=== PATIENT | female | born 1990 | race Caucasian/White ===

== ENCOUNTER 2023-04-26 08:04 | Outpatient (REF) | payer OTHER, SELFPAY ==
--- NOTE | ~2023-04-26 | XR_ITS ---
EXAMINATION: XR KNEE, LEFT CLINICAL INFORMATION: Pain in left knee COMPARISON: 06/30/2011 TECHNIQUE: Three views of the left knee. FINDINGS: There is new since previous examination mild narrowing of medial compartment of left knee joint and marginal spurring causing medial femoral condyle and less prominent medial tibial plateau and lateral tibial plateau. There is patellar spurring but no evidence of joint effusion. There is mild narrowing of lateral compartment of patellofemoral joint. XR/XR knee LT 3V IMPRESSION: 3 compartmental changes of osteoarthritis of left knee joint.
== END 2023-04-26 08:05 | disposition home or self-care (01) ==
LOC: HO.HOSX 08:04
PROVIDERS: Visit Provider Orthopaedic Surgery
DX: M25.562 Pain in left knee (principal)
CPT/HCPCS: 20610; 73562; J3301

== ENCOUNTER 2023-04-26 13:25 | Outpatient (AMB) | payer OTHER, SELFPAY ==
--- NOTE | 2023-04-26 13:39 | MHC.OFFVIS ---
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 Patient reports while it was her turn to bowl she heard a crack and pop in her left knee. She presented to [facility] ED that same day where xrays were taken. She was also seen the following day due to coldness in foot and searing pain up and down her leg. Currently unable to bear weight without pain. Finds no relief with ibuprofen. Hx of left knee meniscus repair [place] [facility] [place] denies any fevers or chills. She has taken Tylenol and anti-inflammatory medicines which gave her minimal relief. 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 Physical Exam Vital Signs: BMI result Body Mass Index 45.2 Const Other: Well-nourished well-developed very friendly female awake alert and oriented x3 in no acute distress Extrem Other: Bilateral lower extremity examination shows good capillary refill, no skin lesions noted, normal sensation light touch Left knee examination shows a mild effusion, mild crepitus with range of motion, tenderness along her medial joint line, tenderness diffusely along her extensor mechanism, no palpable defect, positive Kwesi's test, weakness when attempting active extension which might be limited due to pain Office Procedures Joint Injection/Drain Joint Injection/Drain Primary Site: left knee Prep: site was prepped using aseptic technique Injected: 40 mg of, Kenalog and 1% plain lidocaine Procedure: The patient tolerated the procedure well Coding 38240 - Large joint Procedure code (CPT) selection complete Results Reviewed Results Reviewed: X-rays of the patient's left knee show mild joint space narrowing, no acute bony abnormalities, no high riding patella Assessment & Plan Assessment & Plan (1) Left knee pain: Code(s): M25.562 - Pain in left knee Plan: Ms. Shrestha presents with left knee pain and weakness possibly due to a recurrence medial meniscus tear verses extensor mechanism injury. The risks and benefits of a cortisone injection were discussed at length with the patient. The patient wished to proceed. She tolerated the injection well. Because of her instability I will also have her fitted with a knee brace. I do find that the brace is a medical necessity to help prevent falls. I will also send the patient for an MRI of her left knee to further evaluate her for a meniscus or extensor mechanism injury. I will contact the patient by phone once the MRI results are available. I did give her a prescription for Dilaudid to help with her pain in the meantime. Feel free to call me at any time should questions regarding her orthopedic management arise. I spent 22 minutes in reviewing the patient's records and imaging studies, seeing the patient and documenting in the medical record. Orders: Orders MR knee LT wo con Today M25.562 - Pain in left knee XR knee LT 3V Today M25.562 - Pain in left knee AMB Joint Injection/Aspiration Today M25.562 - Pain in left knee Medications: New hydromorphone (Dilaudid) Partial Fill upon patient request. 2 mg PO Q8H 20 tabs 0RF Coding Level of Care Code New Pt Level 2 (22953) Diagnoses Left knee pain M25.562 CPT Codes Coding - 98571 Large joint: 54037 - Large joint ([id number])
[2023-04-26 13:43] VITALS: BMI 45.2
== END 2023-04-26 14:23 | disposition home or self-care (01) ==
PROVIDERS: PCP Internal Medicine; Visit Provider Orthopaedic Surgery
DX: M25.562 Pain in left knee (principal)
CPT/HCPCS: 20610; 99202

== ENCOUNTER 2023-05-04 09:47 | Outpatient (AMB) | payer OTHER, SELFPAY ==
[2023-05-04 09:50] VITALS: BMI 45.2
--- NOTE | 2023-05-04 09:50 | MHC.OFFVIS ---
Intake Vital Signs 05/04/23 09:50 Height 5 ft 6 in Weight 280 lb BMI 45.2 Intake Visit Reasons: ov-Left Knee MRI review Intake Note: Cadence is a 32 year old female who presents for follow-up of her left knee pain and giving way. The patient states that she got minimal relief from the cortisone injection that she was given recently. She continues to walk with crutches. She has tried Dilaudid which gives her no relief but did make her dizzy. The patient states that her ultrasounds of her left lower extremity did show a blood clot. She is now on Eliquis. 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 Shrestha presents with left knee pain and mechanical symptoms due to early degenerative joint disease as well as tearing of her lateral meniscus and possible medial meniscus tearing. I had a lengthy discussion with the patient regarding the treatment options. At this point she appears to be failing continued non operative treatments. I discussed with the patient the fact that I do not feel comfortable performing arthroscopic surgery on her because of her recent blood clot. From my standpoint she should wait several months. We did discuss the patient is getting a 2nd opinion from my partner, Dr. Pravin Jarrell. Dr. Jarrell did recently perform shoulder surgery on the patient's . I have no problem with this. I will arrange for the patient to have a follow-up appointment with Dr. Jarrell. She will follow-up as instructed. Feel free to call me at any time should questions regarding her orthopedic management arise. I spent 20 minutes in reviewing the patient's records and imaging studies, seeing the patient and documenting in the medical record. Coding Level of Care Code Est Pt Level 2 (50270) Diagnoses Left knee pain M25.562
== END 2023-05-04 10:49 | disposition home or self-care (01) ==
PROVIDERS: PCP Internal Medicine; Visit Provider Orthopaedic Surgery
DX: M25.562 Pain in left knee (principal)
CPT/HCPCS: 99212

== ENCOUNTER → 2023-05-04 09:47 | Outpatient (BNVA) | payer OTHER, SELFPAY | PROVIDERS: PCP Internal Medicine; Visit Provider Orthopaedic Surgery ==

== ENCOUNTER 2023-05-09 13:24 | Outpatient (AMB) | payer OTHER, SELFPAY ==
--- NOTE | 2023-05-09 13:34 | A.OFFVIS_ITS ---
Intake Intake Visit Reasons: OV- Left knee pain Intake Note: Cadence is a 32 year old female who presents for follow-up of her left knee pain. She injured it on April 24 while bowling. She is here to see Dr. Jarrell as she was referred by Dr. Loera. Allergies Penicillins [PENICILLINS] Allergy (Severe, Verified 05/09/23 13:37) SHORTNESS OF BREATH amoxicillin [AMOXICILLIN] Allergy (Unknown, Verified 05/09/23 13:37) DIFFICULTY BREATHING, shortness of breath Medication List - Last Reconciled 05/09/23 by Anjelica Mcdonald RN hydromorphone (Dilaudid) 2 mg PO Q8H HPI OV- Left knee pain HPI Details Cadence is a 32 year old woman who presents to discuss treatment for her left knee meniscus tear & OA. She complains of pain with daily activity, worse with twisting activities or using stairs. She reports injuring her knee on 04/24/23 while bowling. She says she cannot play games and other activities with her children, and she is worried about how much worse her knee may get if she does not have surgery. She says the brace she was given does not fit properly and she cannot wear it. She finds some relief from taking her Dilauded. She was referred her by Dr. Loera, as he did not recommend surgery given her recent hx of DVT in her left leg, which she is managing with [facility]. 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 Review of Systems Const All systems reviewed & are unremarkable except as noted in HPI and below Physical Exam Const General: no acute distress, alert and awake Orientation/consciousness: patient oriented x3 HEENT Head: Yes normocephalic and Yes atraumatic Eyes EOM: EOMs intact bilaterally Resp Effort & Inspection: normal respiratory effort and able to speak in complete sentences Cardio Jugular venous distension: no JVD Skin General skin exam: turgor normal Rashes: no rashes Neuro General: patient oriented x3 Extrem Other: medial joint line pain moderate effusion 5-125 deg motion stable ligamentous exam Psych Appearance: grossly normal Affect: normal affect Attitude: cooperative Results Reviewed Results Reviewed: I personally reviewed relevant MR images Tricompartmental OA most pronounced in anterior compartment with degenerative tearing of medial meniscus. Assessment & Plan Assessment & Plan (1) Osteoarthritis of left knee: Code(s): M17.12 - Unilateral primary osteoarthritis, left knee Plan: This is a 32 year old woman with a left knee tricompartmental OA, with meniscus tear after an injury while bowling, DOI: 04/24/23. She complains of pain with daily activity, worse with twisting activities or using stairs. She has a recent hx of a DVT in her left leg, and she is taking Eliquis for a ED diagnosed clot isolated to gastrocnemius vein. I am not certain this requires full anticoagulation and should be further evaluated by PCP/Vascular. WIth respect to her knee she feels limited in her ability to engage in activities with her children, and she finds this frustrating. I discussed her diagnosis and treatment options. I recommend NSAIDs, RICE, and activity modification. I ordered PT and prescribed a Cryo-cuff for her to use. She will follow up in 4-6 weeks. (2) Effusion, left knee: Code(s): M25.462 - Effusion, left knee Plan Scribed for Pravin Jarrell MD by Mihir Gerber, veterinary medical officer, on 05/09/23 at 2:00 PM, EST. Orders: Orders PT Evaluation and Treatment Today M17.12 - Unilateral primary osteoarthritis, left knee, M25.462 - Effusion, left knee Coding Level of Care Code Est Pt Level 4 (68681) Diagnoses Osteoarthritis of left knee M17.12 Effusion, left knee M25.462
== END 2023-05-09 14:22 | disposition home or self-care (01) ==
PROVIDERS: PCP Internal Medicine; Visit Provider Orthopaedic Surgery
DX: M17.12 Unilateral primary osteoarthritis, left knee (principal); M25.462 Effusion, left knee
CPT/HCPCS: 99214

== ENCOUNTER → 2023-05-09 13:24 | Outpatient (BNVA) | payer OTHER, SELFPAY | PROVIDERS: PCP Internal Medicine; Visit Provider Orthopaedic Surgery ==

== ENCOUNTER 2023-05-13 14:44 | Outpatient (AMB) | payer OTHER, SELFPAY ==
[2023-05-13 14:56] VITALS: BP 130/82; PULSE 105; TEMP 36.4; O2SAT 98; BMI 45.2
--- NOTE | 2023-05-13 14:56 | MHC.OFFWIV ---
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/[phone] Intake Note: pt is here for medication refill Patient Tobacco Use Status: Never used Tobacco Allergies Penicillins [PENICILLINS] Allergy (Severe, Verified 05/13/23 14:56) SHORTNESS OF BREATH amoxicillin [AMOXICILLIN] Allergy (Unknown, Verified 05/13/23 14:56) DIFFICULTY BREATHING, shortness of breath Medication List - Last Reconciled 05/13/23 by Simba Padron MD apixaban (Eliquis DVT-PE Treat 30D Start) mg PO metformin 1,000 mg PO DAILY Do you need a note to return to daycare/school/sports/work: Yes HPI 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 She was also found to be diabetic with hemoglobin A1c of 8.9 Currently she is taking metformin 1 g, patient request to go up to b.i.d. does which is fine with me. We will get note from emergency room to review her other labs She said that her kidney functions were intact She need a referral to Hematology because of DVT Patient is morbidly obese with BMI of 45.2 She had appointment with new PCP but it is not till December of next year I am changing that appointment to end of May patient will return and see me. Also complaining of discomfort left ear on examination there is no infection. 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 Review of Systems Const Denies chills and Denies fever(s) ENT Denies epistaxis and Denies nasal discharge Card Denies chest pain Resp Denies chest congestion, Denies cough and Denies hemoptysis GI Denies diarrhea and Denies nausea Skin/Breast Denies rash Neuro Reports no additional complaints Psych Reports no additional complaints Endo Reports no additional complaints Physical Exam Vital Signs: Last Vital Signs Temp 97.6 F 05/13/23 14:56 Pulse 105 H 05/13/23 14:56 BP 130/82 05/13/23 14:56 Pulse Ox 98 05/13/23 14:56 Oxygen Delivery Method Room Air 05/13/23 14:56 BMI result Body Mass Index 45.2 Const General: cooperative, comfortable and no acute distress Orientation/consciousness: patient oriented x3 HEENT Head: Yes normocephalic Eyes General: appearance normal, both eyes and all related structures Neck Other: Supple Neck: Yes supple Resp Effort & Inspection: normal respiratory effort, no cough and no stridor Cardio Rhythm: regular rhythm Heart sounds: S1 normal heart sound present and S2 normal heart sound present Skin General skin exam: turgor normal Neuro Other: Motor sensory intact General: patient oriented x3, tone normal and moves all extremities Extrem Other: No lower extremity swelling. Right lower extremity: no edema Left lower extremity: no edema Psych Other: Normal effect, speech clear Assessment & Plan Assessment & Plan (1) Diabetes mellitus type 2 in obese: Code(s): E11.69 - Type 2 diabetes mellitus with other specified complication; E66.9 - Obesity, unspecified (2) Hx of usp use of blood thinners: Code(s): Z92.29 - Personal history of other drug therapy (3) Morbid obesity due to excess calories: Code(s): E66.01 - Morbid (severe) obesity due to excess calories (4) Ear pain, left: Code(s): H92.02 - Otalgia, left ear (5) Deep venous thrombosis of distal end of left lower extremity: Code(s): I82.4Z2 - Acute embolism and thrombosis of unspecified deep veins of left distal lower extremity Qualifiers: Chronicity: acute Qualified Code(s): I82.4Z2 - Acute embolism and thrombosis of unspecified deep veins of left distal lower extremity Plan Patient is 32-year-old female came in today for medication refill Patient says that April 24 she fell and injured her left knee After that patient developed DVT left lower extremity she was evaluated at [facility] Patient was started on Eliquis currently she is taking 5 mg b.i.d. She was also found to be diabetic with hemoglobin A1c of 8.9 Currently she is taking metformin 1 g, patient request to go up to b.i.d. does which is fine with me. We will get note from emergency room to review her other labs She said that her kidney functions were intact She need a referral to Hematology because of DVT Patient is morbidly obese with BMI of 45.2 She had appointment with new PCP but it is not till December of next year I am changing that appointment to end of May patient will return and see me. Also complaining of discomfort left ear on examination there is no infection. Medications sent Orders: Orders Comprehensive Met. Panel Today E11.9 - Type 2 diabetes mellitus without complications, Z92.29 - Personal history of other drug therapy Complete Blood Count Auto Diff Today E11.9 - Type 2 diabetes mellitus without complications, Z92.29 - Personal history of other drug therapy Hemoglobin A1c Today E11.9 - Type 2 diabetes mellitus without complications, Z92.29 - Personal history of other drug therapy Referrals Hematology & Oncology Referral I82.4Z2 - Acute embolism and thrombosis of unspecified deep veins of left distal lower extremity Medications: New metformin 1,000 mg PO BID 180 tabs 0RF 90 days apixaban (Eliquis DVT-PE Treat 30D Start) 5 mg PO BID 180 ea 0RF 90 days Coding Level of Care Code New Pt Level 5 (54693) Diagnoses Diabetes mellitus type 2 in obese E11.69; E66.9 Hx of usp use of blood thinners Z92.29 Morbid obesity due to excess calories E66.01 Ear pain, left H92.02 Acute deep vein thrombosis (DVT) of distal vein of left lower extremity I82.4Z2 Chronicity: acute
== END 2023-05-13 15:28 | disposition home or self-care (01) ==
PROVIDERS: PCP Internal Medicine; Visit Provider Internal Medicine
DX: E11.69 Type 2 diabetes mellitus with other specified complication (principal); E66.01 Morbid (severe) obesity due to excess calories; I82.4Z2 Acute embolism and thrombosis of unspecified deep veins of left distal lower extremity; Z68.42 Body mass index [BMI] 45.0-49.9, adult; E66.9 Obesity, unspecified; Z92.29 Personal history of other drug therapy; H92.02 Otalgia, left ear
CPT/HCPCS: 99204

== ENCOUNTER → 2023-06-07 13:48 | Outpatient (BNV) | payer OTHER, SELFPAY | PROVIDERS: PCP Internal Medicine; Visit Provider Internal Medicine | DX: I82.4Z2 Acute embolism and thrombosis of unspecified deep veins of left distal lower extremity (principal) | CPT/HCPCS: 99204 ==

== ENCOUNTER 2023-06-07 14:29 | Outpatient (REF) | payer OTHER, SELFPAY ==
--- NOTE | ~2023-06-07 | US_ITS ---
EXAMINATION: US VENOUS ULTRASOUND WITH DOPPLER LOWER EXTREMITY, LEFT CLINICAL INFORMATION: History of superficial calf thrombosis. COMPARISON: None available. TECHNIQUE: Ultrasound of the deep veins is performed from the hip to the calf with compression sonography and color and pulse Doppler assessment. Spectral analysis with color-flow imaging is performed. FINDINGS: There is normal venous compression and respiratory variation and augmented flow. The visualized common femoral vein, superficial femoral vein, profunda femoral vein, popliteal vein, and the trifurcation region shows no evidence of deep venous thrombosis. There is no significant popliteal fossa cyst. No thrombosed superficial veins identified. If the patient's symptoms persist, followup ultrasound in 5 days 7 days might be of value to exclude proximal propagation from a non-visualized calf vein. US/US venous duplex LE IMPRESSION: No DVT demonstrated in the left lower extremity.
== END 2023-06-07 14:30 | disposition home or self-care (01) ==
LOC: HO.US 14:29
PROVIDERS: Visit Provider Internal Medicine
DX: I82.4Z2 Acute embolism and thrombosis of unspecified deep veins of left distal lower extremity (principal)
CPT/HCPCS: 93971

== ENCOUNTER 2023-06-08 15:06 | Outpatient (AMB) | payer OTHER, SELFPAY ==
[2023-06-08 15:07] VITALS: BP 132/78; PULSE 93; O2SAT 98; BMI 45.4
--- NOTE | 2023-06-08 15:07 | MHC.PC.OV ---
Vital Signs 06/08/23 15:07 Height 5 ft 6 in Weight 281 lb 6 oz BMI 45.4 BP 132/78 Blood Pressure Location Rt brachial Position Sitting Pulse 93 Pulse Source Pulse Oximeter Pulse Oximetry (%) 98 Oxygen Delivery Method Room Air Intake Visit Reasons: Follow up from the walk in Allergies Penicillins [PENICILLINS] Allergy (Severe, Verified 06/08/23 15:08) SHORTNESS OF BREATH amoxicillin [AMOXICILLIN] Allergy (Unknown, Verified 06/08/23 15:08) DIFFICULTY BREATHING, shortness of breath Medication List - Last Reconciled 06/08/23 by Simba Padron MD blood sugar diagnostic (FreeStyle Lite Strips) test blood sugar once a day blood-glucose meter (FreeStyle Lite Meter kit) As directed lancets (FreeStyle Lancets) test blood sugar once a day metformin 1,000 mg PO BID 90 days Tobacco use date assessed: 06/08/23 Dental Screening Dental Screen Date: 06/08/23 Did you have a dental visit in the last 12 months?: Yes Did you have a dental problem in the last 6 months where you did not have access to dental care?: No Was dental information given to patient?: Patient has dentist HPI Follow up from the walk in HPI Details Patient is a 32-year-old female with a history of DVT left leg after injury She has been on Plavix for the past 2 months, patient had consultation by Hematology. Note reviewed, they recommended that patient stop Plavix after finishing this month. She had ultrasound of leg done which showed no DVT. Diabetes mellitus: Patient is currently taking metformin 1 g b.i.d., her fasting sugar is running around 120 and after eating around 140 Patient is tolerating medication with a slight discomfort in her abdomen. BMI is elevated at 45.4 patient is trying to lose weight. She will have labs done in July and will return in August for physical examination. 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 How often do you have a drink containing alcohol?: Never 3. How often do you have six or more drinks on one occasion?: Never Total Score: 0 Score Reviewed/Action Taken: Yes Review of Systems Const Denies chills and Denies fever(s) ENT Denies epistaxis and Denies nasal discharge Card Denies chest pain Resp Denies chest congestion, Denies cough and Denies hemoptysis GI Denies diarrhea and Denies nausea Skin/Breast Denies rash Neuro Reports no additional complaints Psych Reports no additional complaints Endo Reports no additional complaints Physical exam (Primary Care) Vital Signs: Last Vital Signs Pulse 93 06/08/23 15:07 BP 132/78 06/08/23 15:07 Pulse Ox 98 06/08/23 15:07 Oxygen Delivery Method Room Air 06/08/23 15:07 BMI result Body Mass Index 45.4 Tobacco/Smoking Status: Tobacco use Status Tobacco use date assessed 06/08/23 06/08/23 15:08 Patient Tobacco Use Status Never used Tobacco 06/08/23 15:08 e-Cigarette/Vaping Use Never Used 06/08/23 15:08 Const General: cooperative, comfortable and no acute distress Orientation/consciousness: patient oriented x3 HENMT Head: Yes normocephalic Eyes General: appearance normal, both eyes and all related structures Neck Neck: Yes supple Resp Effort & Inspection: normal respiratory effort, no cough and no stridor Cardio Rhythm: regular rhythm Heart sounds: S1 normal heart sound present and S2 normal heart sound present Skin General skin exam: turgor normal Neuro General: patient oriented x3, tone normal and moves all extremities Extrem Right lower extremity: no edema Left lower extremity: no edema Assessment and Plan Assessment & Plan (1) Establishing care with new doctor, encounter for: Code(s): Z76.89 - Persons encountering health services in other specified circumstances (2) Diabetes mellitus type 2 in obese: Code(s): E11.69 - Type 2 diabetes mellitus with other specified complication; E66.9 - Obesity, unspecified (3) Morbid obesity due to excess calories: Code(s): E66.01 - Morbid (severe) obesity due to excess calories (4) Osteoarthritis of left knee: Code(s): M17.12 - Unilateral primary osteoarthritis, left knee Qualifiers: Osteoarthritis type: primary Qualified Code(s): M17.12 - Unilateral primary osteoarthritis, left knee Plan Patient is a 32-year-old female with a history of DVT left leg after injury She has been on Plavix for the past 2 months, patient had consultation by Hematology. Note reviewed, they recommended that patient stop Plavix after finishing this month. She had ultrasound of leg done which showed no DVT. Diabetes mellitus: Patient is currently taking metformin 1 g b.i.d., her fasting sugar is running around 120 and after eating around 140 Patient is tolerating medication with a slight discomfort in her abdomen. BMI is elevated at 45.4 patient is trying to lose weight. She will have labs done in July and will return in August for physical examination. Orders: Orders Complete Blood Count Auto Diff Today . - Type 2 diabetes mellitus with other specified complication, E66.01 - Morbid (severe) obesity due to excess calories, E66.9 - Obesity, unspecified, M17.12 - Unilateral primary osteoarthritis, left knee Microalbumin, Random (w Creat) Today . - Type 2 diabetes mellitus with other specified complication, E66.01 - Morbid (severe) obesity due to excess calories, E66.9 - Obesity, unspecified, M17.12 - Unilateral primary osteoarthritis, left knee Lipid Panel Today . - Type 2 diabetes mellitus with other specified complication, E66.01 - Morbid (severe) obesity due to excess calories, E66.9 - Obesity, unspecified, M17.12 - Unilateral primary osteoarthritis, left knee Hemoglobin A1c Today E11. - Type 2 diabetes mellitus with other specified complication, E66.01 - Morbid (severe) obesity due to excess calories, E66.9 - Obesity, unspecified, M17.12 - Unilateral primary osteoarthritis, left knee Comprehensive Mcgrath. Panel Fast Today E11. - Type 2 diabetes mellitus with other specified complication, E66.01 - Morbid (severe) obesity due to excess calories, E66.9 - Obesity, unspecified, M17.12 - Unilateral primary osteoarthritis, left knee TSH reflex Free T4 Today E11.69 - Type 2 diabetes mellitus with other specified complication, E66.01 - Morbid (severe) obesity due to excess calories, E66.9 - Obesity, unspecified, M17.12 - Unilateral primary osteoarthritis, left knee Medications: Discontinued apixaban (Eliquis) Discontinued Reason: Patient Completed Course 5 mg PO BID 90 days 180 tabs 0RF Coding Level of Care Code New Pt Level 4 (99388) Diagnoses Establishing care with new doctor, encounter for Z76.89 Diabetes mellitus type 2 in obese E11.69; E66.9 Morbid obesity due to excess calories E66.01 Primary osteoarthritis of left knee M17.12 Osteoarthritis type: primary
== END 2023-06-08 17:48 | disposition home or self-care (01) ==
PROVIDERS: PCP Internal Medicine; Visit Provider Internal Medicine
DX: E11.69 Type 2 diabetes mellitus with other specified complication (principal); E66.01 Morbid (severe) obesity due to excess calories; Z68.42 Body mass index [BMI] 45.0-49.9, adult; Z76.89 Persons encountering health services in other specified circumstances; M17.12 Unilateral primary osteoarthritis, left knee
CPT/HCPCS: 99214

== ENCOUNTER 2023-06-13 14:28 | Outpatient (AMB) | payer OTHER, SELFPAY ==
[2023-06-13 14:32] VITALS: BMI 45.3
--- NOTE | 2023-06-13 14:32 | A.OFFVIS_ITS ---
Intake Vital Signs 06/13/23 14:32 Height 5 ft 6 in Weight 281 lb BMI 45.3 Intake Visit Reasons: ov- Left knee pain Intake Note: Cadence is a 32 year old female who presents today for a follow up of her left knee pain. Cryocuff was ordered. Patient report that she is still having continued pain/swelling. She no longer has a blood clot so she is no longer taking blood thinners. She has pain with prolonged standing and walking. She is using the Cryotherapy device whic she feels is helping her significantly. She would like a letter of medical necessity. Allergies Penicillins [PENICILLINS] Allergy (Severe, Verified 06/08/23 15:08) SHORTNESS OF BREATH amoxicillin [AMOXICILLIN] Allergy (Unknown, Verified 06/08/23 15:08) DIFFICULTY BREATHING, shortness of breath HPI ov- Left knee pain HPI Details Cadence is a 32 year old woman who returns to discuss her left knee meniscus tear & OA. She continues to have some pain & swelling with daily activities, worse with twisting activities or using stairs. She says this has improved since her last appointment, but she has good & bad days She has been using a cryo-cuff since her last appointment, which she has found to be very helpful for her. She is supposed to finally start PT this week. She is eager to return to bowling soon, as well as going to the gym and riding a stationary bicycle. She would like a letter of medical necessity for her insurance provider to continue using the cryo-cuff device. She says her recent ultrasound showed no evidence of DVT and she has discontinued her Eliquis. She would like to start taking NSAIDs for relief now. 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 Sexual orientation: Straight/Heterosexual Gender identity: Female Cognitive needs: No Hearing needs: No Vision needs: No Review of Systems Const All systems reviewed & are unremarkable except as noted in HPI and below Physical Exam Vital Signs: BMI result Body Mass Index 45.3 Const General: no acute distress, alert and awake Orientation/consciousness: patient oriented x3 HEENT Head: Yes normocephalic and Yes atraumatic Eyes EOM: EOMs intact bilaterally Resp Effort & Inspection: normal respiratory effort and able to speak in complete sentences Cardio Jugular venous distension: no JVD Skin General skin exam: turgor normal Rashes: no rashes Neuro General: patient oriented x3 Extrem Other: Left knee with full ROM and mild effusion Mild pain with medial compartment palpation Psych Appearance: grossly normal Affect: normal affect Attitude: cooperative Results Reviewed Results Reviewed: I personally reviewed relevant MR images Tricompartmental OA most pronounced in anterior compartment with degenerative tearing of medial meniscus. Assessment & Plan Assessment & Plan (1) Osteoarthritis of left knee: Code(s): M17.12 - Unilateral primary osteoarthritis, left knee Qualifiers: Osteoarthritis type: primary Qualified Code(s): M17.12 - Unilateral primary osteoarthritis, left knee Plan: Left knee OA with degenerative meniscal tearing. No intervantion warranted. She feels better than prior and we discussed ways to manage her arthritis through activity modification adn non suregical interventions such as injections, strtengthening. She expressed understanding and will see me as needed. Plan Scribed for Pravin Jarrell MD by Mihir Gerber, medical research associate, on 06/13/23 at 2:50 PM, EST. Coding Level of Care Code Est Pt Level 4 (56544) Diagnoses Primary osteoarthritis of left knee M17.12 Osteoarthritis type: primary
== END 2023-06-13 15:31 | disposition home or self-care (01) ==
PROVIDERS: PCP Internal Medicine; Visit Provider Orthopaedic Surgery
DX: M17.12 Unilateral primary osteoarthritis, left knee (principal)
CPT/HCPCS: 99213

== ENCOUNTER → 2023-06-13 14:28 | Outpatient (BNVA) | payer OTHER, SELFPAY | PROVIDERS: PCP Internal Medicine; Visit Provider Orthopaedic Surgery ==

== ENCOUNTER 2023-09-30 11:29 | Outpatient (REF) | payer OTHER, SELFPAY ==
[2023-09-30 13:16] LABS: Basophils Percent Auto 0.3 % (0-2); Eosinophils Absolute Auto 0.1 X10*3/uL (0.0-0.4); Eosinophils Percent Auto 1.1 % (0-4); Hematocrit 40.9 % (37.0-47.0); Hemoglobin 13.9 g/dl (12.0-16.0); Imm Gran Abs Auto 0.04 X10*3/uL (0.00-0.03); Imm Gran Pct Auto 0.5 % (0.0-0.4); Lymphocytes Absolute Auto 2.8 X10*3/uL (1.2-4.9); Lymphocytes Percent Auto 31.9 % (20-40); MANUAL DIFF FLAG NO; Mean Corpuscular Hemoglobin 28.8 pg (27.0-33.0); Mean Corpuscular Volume 84.7 fL (80.0-98.0); Mean Platelet Volume 9.9 fL (9.4-12.3); Monocytes Absolute Auto 0.5 X10*3/uL (0.1-1.2); Monocytes Percent Auto 5.8 % (2-11); Neutrophils Absolute Auto 5.4 x10*3/uL (2.0-8.3); Neutrophils Percent Auto 60.4 % (45-73); Platelet Count 305 X10*3/uL (160-400); Red Blood Count 4.83 X10*6/uL (4.20-5.50); Red Cell Distribution Width 12.6 % (11.0-16.0); White Blood Count 8.9 X10*3/uL (4.8-10.8)
[2023-09-30 13:37] LABS: Estimated Average Glucose 148 mg/dL; Hemoglobin A1c % 6.8 % (<6.0)
[2023-09-30 13:38] LABS: Alanine Aminotransferase 25 U/L (0-31); Albumin Level 4.1 g/dL (3.5-5.0); Alkaline Phosphatase 43 U/L (39-117); Anion Gap 13 (12-20); Aspartate Amino Transferase 19 U/L (5-31); Bilirubin Total 0.6 mg/dL (0.0-1.0); Blood Urea Nitrogen 13 mg/dL (9-16); Calcium 9.3 mg/dL (8.4-10.2); Carbon Dioxide 27 mmol/L (22-29); Chloride 102 mmol/L (96-108); Cholesterol 174 mg/dL (<200); Estimated Glomerular Filt Rate > 60; Glucose Fasting 122 mg/dL (60-99); HDL Cholesterol 49 mg/dL (>40); LDL Cholesterol Calculated 82 mg/dL (<100); Potassium 3.8 mmol/L (3.3-5.1); Sodium 138 mmol/L (135-145); Triglycerides 216 mg/dL (<150)
[2023-09-30 13:53] LABS: TSH reflex Free T4 1.35 uIU/mL (0.32-4.0)
[2023-09-30 14:02] LABS: Creatinine Urine 204.05 mg/dL; Microalbum/Creatinine Ratio Ur 8.8 ug/mg cr (<30)
== END 2023-09-30 11:30 | disposition home or self-care (01) ==
LOC: HO.HMGCLDS 11:29
PROVIDERS: Visit Provider Internal Medicine
DX: E11.69 Type 2 diabetes mellitus with other specified complication (principal); E66.01 Morbid (severe) obesity due to excess calories; M17.12 Unilateral primary osteoarthritis, left knee
CPT/HCPCS: 36415; 80053; 80061; 82043; 82570; 83036; 84443; 85025

== ENCOUNTER 2023-10-07 14:41 | Outpatient (AMB) | payer OTHER, SELFPAY ==
[2023-10-07 14:45] VITALS: BP 134/76; PULSE 110; O2SAT 99; BMI 44.9
--- NOTE | 2023-10-07 14:45 | A.OFFPC_ITS ---
Vital Signs 10/07/23 14:45 Height 5 ft 6 in Weight 278 lb 8 oz BMI 44.9 BP 134/76 Blood Pressure Location Rt brachial Position Sitting Pulse 110 H Pulse Source Pulse Oximeter Pulse Oximetry (%) 99 Oxygen Delivery Method Room Air Intake Visit Reasons: Annual PE~ Allergies Penicillins [PENICILLINS] Allergy (Severe, Verified 10/07/23 14:47) SHORTNESS OF BREATH amoxicillin [AMOXICILLIN] Allergy (Unknown, Verified 10/07/23 14:47) DIFFICULTY BREATHING, shortness of breath Medication List - Last Reconciled 10/07/23 by Simba Padron MD blood sugar diagnostic (FreeStyle Lite Strips) test blood sugar once a day blood-glucose meter (FreeStyle Lite Meter kit) As directed lancets (FreeStyle Lancets) test blood sugar once a day metformin 1,000 mg PO BID 90 days Tobacco use date assessed: 10/07/23 Dental Screening Dental Screen Date: 10/07/23 Did you have a dental visit in the last 12 months?: Yes Did you have a dental problem in the last 6 months where you did not have access to dental care?: No Was dental information given to patient?: Patient has dentist HPI Annual PE~ HPI Details Patient is 32-year-old female came in today for physical examination She is due for OBGYN visit, referral placed BMI is elevated at 45.0, patient is also diabetic Labs done recently reviewed with the patient hemoglobin A1c 6.8 Patient is currently on metformin 1 g b.i.d. Patient says that she feels she is lactose intolerant as when she consume dairy she started having cramping and diarrhea She will eliminate dairy and see if she improves. I have sent semaglutide injections for the patient she knows how to give herself injections because she had gestational diabetes and was on insulin Once a week she will start any problem she will get back to me. 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 How often do you have a drink containing alcohol?: Never 3. How often do you have six or more drinks on one occasion?: Never Total Score: 0 Score Reviewed/Action Taken: Yes Review of Systems Const Denies chills, Denies fever(s) and Denies headache(s) Eyes Denies blurry vision ENT Denies headache(s), Denies nasal discharge, Denies nasal obstruction, Denies odynophagia and Denies sinus pain Card Denies chest pain at rest and Denies chest pain with activity Resp Denies cough and Denies hemoptysis GI Denies diarrhea, Denies odynophagia, Denies vomiting and Denies hematemesis Reports as per HPI Musc Denies abnormal gait Skin/Breast Reports as per HPI Neuro Denies Neuro-related abnormal movements, Denies Abnormal speech present, Denies abnormal gait, Denies headache(s) and Denies Sensory deficit (Neuro) Psych Denies mood swings and Denies paranoia Endo Reports as per HPI Calvin/Lymph Reports as per HPI Aller/Immun Reports as per HPI Physical exam (Primary Care) Vital Signs: Last Vital Signs Pulse 110 H 10/07/23 14:45 BP 134/76 10/07/23 14:45 Pulse Ox 99 10/07/23 14:45 Oxygen Delivery Method Room Air 10/07/23 14:45 BMI result Body Mass Index 44.9 Tobacco/Smoking Status: Tobacco use Status Tobacco use date assessed 10/07/23 10/07/23 14:48 Patient Tobacco Use Status Never used Tobacco 10/07/23 14:48 e-Cigarette/Vaping Use Never Used 10/07/23 14:48 Const General: cooperative, comfortable and no acute distress Orientation/consciousness: patient oriented x3 HENMT Head: Yes normocephalic and Yes atraumatic Eyes General: appearance normal, both eyes and all related structures Pupils: Equal, round and reactive pupils present EOM: EOMs intact bilaterally Neck Neck: Yes supple and No lymphadenopathy Thyroid: Thyroid normal Lymphatic: no lymphadenopathy noted Resp Effort & Inspection: normal respiratory effort and able to speak in complete sentences Auscultation: clear to auscultation bilaterally Cardio Heart sounds: S1 normal heart sound present and S2 normal heart sound present GI Palpation (GI): Soft to palpation and nontender Auscultation: normal bowel sounds General: Yes no CVA tenderness Back/Spine/Pelvis Back: no CVA tenderness Skin General skin exam: elasticity normal and turgor normal Neuro General: patient oriented x3 and gait normal Cranial nerves: Yes Equal, round and reactive pupils present Speech: No Abnormal speech present Sensory Exam: No Sensory deficit (Neuro) Coordination: tandem gait normal and Romberg test negative Extrem General: Yes normal exam except as noted and No edema Assessment and Plan Assessment & Plan (1) Encounter for general adult medical examination with abnormal findings: Code(s): Z00.01 - Encounter for general adult medical examination with abnormal findings (2) Morbid obesity due to excess calories: Code(s): E66.01 - Morbid (severe) obesity due to excess calories (3) Diabetes mellitus type 2 in obese: Code(s): E11.69 - Type 2 diabetes mellitus with other specified complication; E66.9 - Obesity, unspecified Plan Patient is 32-year-old female came in today for physical examination She is due for OBGYN visit, referral placed BMI is elevated at 45.0, patient is also diabetic Labs done recently reviewed with the patient hemoglobin A1c 6.8 Patient is currently on metformin 1 g b.i.d. Patient says that she feels she is lactose intolerant as when she consume dairy she started having cramping and diarrhea She will eliminate dairy and see if she improves. I have sent semaglutide injections for the patient she knows how to give herself injections because she had gestational diabetes and was on insulin Once a week she will start any problem she will get back to me. Follow-up 4 months labs are needed before visit Orders: Orders Hemoglobin A1c 3 Months E11.69 - Type 2 diabetes mellitus with other specified complication, E66.01 - Morbid (severe) obesity due to excess calories, E66.9 - Obesity, unspecified TSH reflex Free T4 3 Months E11.69 - Type 2 diabetes mellitus with other specified complication, E66.01 - Morbid (severe) obesity due to excess calories, E66.9 - Obesity, unspecified Complete Blood Count Auto Diff 3 Months E11. - Type 2 diabetes mellitus with other specified complication, E66.01 - Morbid (severe) obesity due to excess calories, E66.9 - Obesity, unspecified Comprehensive Met. Panel 3 Months . - Type 2 diabetes mellitus with other specified complication, E66.01 - Morbid (severe) obesity due to excess calories, E66.9 - Obesity, unspecified Microalbumin, Random (w Creat) 3 Months . - Type 2 diabetes mellitus with other specified complication, E66.01 - Morbid (severe) obesity due to excess calories, E66.9 - Obesity, unspecified Referrals [facility] [employer] Referral Z01.419 - Encounter for gynecological examination (general) (routine) without abnormal findings Medications: New semaglutide for 4 weeks 0.25 mg (0.368 mL) subcut QWEEK 2 mL 0RF 30 days . - Type 2 diabetes mellitus with other specified complication, E66.01 - Morbid (severe) obesity due to excess calories, E66.9 - Obesity, unspecified Coding Level of Care Code Est Pt Prev Care 18-39y(02928) Diagnoses Encounter for general adult medical examination with abnormal findings Z00.01 Morbid obesity due to excess calories E66.01 Diabetes mellitus type 2 in obese .; E66.9
== END 2023-10-07 14:59 | disposition home or self-care (01) ==
PROVIDERS: PCP Internal Medicine; Visit Provider Internal Medicine
DX: Z00.00 Encounter for general adult medical examination without abnormal findings (principal); E66.01 Morbid (severe) obesity due to excess calories; Z68.41 Body mass index [BMI] 40.0-44.9, adult; E11.69 Type 2 diabetes mellitus with other specified complication; E66.9 Obesity, unspecified
CPT/HCPCS: 99395

== ENCOUNTER 2024-01-20 13:00 | Outpatient (AMB) | payer OTHER, SELFPAY ==
[2024-01-20 13:02] VITALS: BP 136/86; PULSE 91; O2SAT 100; BMI 42.9
--- NOTE | 2024-01-20 13:02 | A.OFFPC_ITS ---
Vital Signs 01/20/24 13:02 Height 5 ft 6 in Weight 266 lb BMI 42.9 BP 136/86 Blood Pressure Location Lt brachial Position Sitting Pulse 91 Pulse Source Pulse Oximeter Pulse Oximetry (%) 100 Oxygen Delivery Method Room Air Intake Visit Reasons: 4M F/u Allergies Penicillins [PENICILLINS] Allergy (Severe, Verified 01/20/24 13:04) SHORTNESS OF BREATH amoxicillin [AMOXICILLIN] Allergy (Unknown, Verified 01/20/24 13:04) DIFFICULTY BREATHING, shortness of breath Medication List - Last Reconciled 01/20/24 by Simba Padron MD blood sugar diagnostic (FreeStyle Lite Strips) test blood sugar once a day blood-glucose meter (FreeStyle Lite Meter kit) As directed cetirizine (Zyrtec) 10 mg PO DAILY PRN lancets (FreeStyle Lancets) test blood sugar once a day metformin 1,000 mg PO BID 90 days semaglutide 0.25 mg (0.368 mL) subcut QWEEK 30 days Tobacco use date assessed: 10/07/23 Dental Screening Dental Screen Date: 10/07/23 HPI 4M F/u HPI Details Patient is a 33-year-old female with morbid obesity Doing well with semaglutide injections, patient was able to lose more than 10 lb since September I am increasing the dose to 1 mg injections, she is to taper off the metformin She is checking her sugars at home. Labs done last visit reviewed New set of lab order placed to be done before next visit in 3 months Patient says that she is doing very well and is feeling much better since she has lost some weight. 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 Sexual orientation: Straight/Heterosexual Gender identity: Female Cognitive needs: No Hearing needs: No Vision needs: No Review of Systems Const Denies chills and Denies fever(s) ENT Denies epistaxis and Denies nasal discharge Card Denies chest pain Resp Denies chest congestion, Denies cough and Denies hemoptysis GI Denies diarrhea and Denies nausea Skin/Breast Denies rash Neuro Reports no additional complaints Psych Reports no additional complaints Endo Reports no additional complaints Physical exam (Primary Care) Vital Signs: Last Vital Signs Pulse 91 01/20/24 13:02 BP 136/86 01/20/24 13:02 Pulse Ox 100 01/20/24 13:02 Oxygen Delivery Method Room Air 01/20/24 13:02 BMI result Body Mass Index 42.9 Tobacco/Smoking Status: Tobacco use Status Tobacco use date assessed 10/07/23 01/20/24 13:08 Patient Tobacco Use Status Never used Tobacco 01/20/24 13:08 e-Cigarette/Vaping Use Never Used 01/20/24 13:08 Const General: cooperative, comfortable and no acute distress Orientation/consciousness: patient oriented x3 HENMT Head: Yes normocephalic Eyes General: appearance normal, both eyes and all related structures Neck Neck: Yes supple Resp Effort & Inspection: normal respiratory effort, no cough and no stridor Cardio Rhythm: regular rhythm Heart sounds: S1 normal heart sound present and S2 normal heart sound present Skin General skin exam: turgor normal Neuro General: patient oriented x3, tone normal and moves all extremities Extrem Right lower extremity: no edema Left lower extremity: no edema Assessment and Plan Assessment & Plan (1) Diabetes mellitus type 2 in obese: Code(s): E11.69 - Type 2 diabetes mellitus with other specified complication; E66.9 - Obesity, unspecified (2) Morbid obesity due to excess calories: Code(s): E66.01 - Morbid (severe) obesity due to excess calories Plan Patient is a 33-year-old female with morbid obesity Doing well with semaglutide injections, patient was able to lose more than 10 lb since September I am increasing the dose to 1 mg injections, she is to taper off the metformin She is checking her sugars at home. Labs done last visit reviewed New set of lab order placed to be done before next visit in 3 months Patient says that she is doing very well and is feeling much better since she has lost some weight. She offer no new complaints today Orders: Orders Hemoglobin A1c 3 Months - Type 2 diabetes mellitus with other specified complication, E66.01 - Morbid (severe) obesity due to excess calories, E66.9 - Obesity, unspecified Complete Blood Count Auto Diff 3 Months . - Type 2 diabetes mellitus with other specified complication, E66.01 - Morbid (severe) obesity due to excess calories, E66.9 - Obesity, unspecified Comprehensive [place]. Panel Fast 3 Months - Type 2 diabetes mellitus with other specified complication, E66.01 - Morbid (severe) obesity due to excess calories, E66.9 - Obesity, unspecified Lipid Panel 3 Months - Type 2 diabetes mellitus with other specified complication, E66.01 - Morbid (severe) obesity due to excess calories, E66.9 - Obesity, unspecified TSH reflex Free T4 3 Months - Type 2 diabetes mellitus with other specified complication, E66.01 - Morbid (severe) obesity due to excess calories, E66.9 - Obesity, unspecified Microalbumin, Random (w Creat) 3 Months - Type 2 diabetes mellitus with other specified complication, E66.01 - Morbid (severe) obesity due to excess calories, E66.9 - Obesity, unspecified Medications: Changed From semaglutide for 4 weeks 0.25 mg (0.368 mL) subcut QWEEK 30 days 2 mL 0RF - Type 2 diabetes mellitus with other specified complication, E66.01 - Morbid (severe) obesity due to excess calories, E66.9 - Obesity, unspecified To semaglutide for 4 weeks 1 mg (0.75 mL) subcut QWEEK 3.75 mL 0RF 30 days - Type 2 diabetes mellitus with other specified complication, E66.01 - Morbid (severe) obesity due to excess calories, E66.9 - Obesity, unspecified Coding Level of Care Code Est Pt Level 3 (38812) Diagnoses Diabetes mellitus type 2 in obese ; E66.9 Morbid obesity due to excess calories E66.01
== END 2024-01-20 13:26 | disposition home or self-care (01) ==
PROVIDERS: PCP Internal Medicine; Visit Provider Internal Medicine
DX: E11.69 Type 2 diabetes mellitus with other specified complication (principal); E66.01 Morbid (severe) obesity due to excess calories; Z68.41 Body mass index [BMI] 40.0-44.9, adult
CPT/HCPCS: 99213

== ENCOUNTER 2024-01-20 13:23 | Outpatient (REF) | payer OTHER, SELFPAY ==
[2024-01-20 15:59] LABS: MANUAL DIFF FLAG NO
[2024-01-20 16:08] LABS: Basophils Percent Auto 0.3 % (0-2); Eosinophils Absolute Auto 0.1 X10*3/uL (0.0-0.4); Eosinophils Percent Auto 1.6 % (0-4); Hematocrit 39.8 % (37.0-47.0); Hemoglobin 13.4 g/dl (12.0-16.0); Imm Gran Abs Auto 0.02 X10*3/uL (0.00-0.03); Imm Gran Pct Auto 0.2 % (0.0-0.4); Lymphocytes Absolute Auto 2.8 X10*3/uL (1.2-4.9); Lymphocytes Percent Auto 32.8 % (20-40); Mean Corpuscular HGB Conc 33.7 g/dl (31.0-35.0); Mean Corpuscular Hemoglobin 28.9 pg (27.0-33.0); Mean Platelet Volume 10.8 fL (9.4-12.3); Monocytes Absolute Auto 0.5 X10*3/uL (0.1-1.2); Neutrophils Absolute Auto 5.1 x10*3/uL (2.0-8.3); Neutrophils Percent Auto 59.1 % (45-73); Platelet Count 349 X10*3/uL (160-400); Red Blood Count 4.63 X10*6/uL (4.20-5.50); Red Cell Distribution Width 13.5 % (11.0-16.0); White Blood Count 8.6 X10*3/uL (4.8-10.8)
[2024-01-20 16:21] LABS: Estimated Average Glucose 131 mg/dL; Hemoglobin A1c % 6.2 % (<6.0)
[2024-01-20 16:38] LABS: Alanine Aminotransferase 19 U/L (0-31); Alkaline Phosphatase 36 U/L (39-117); Anion Gap 11 (12-20); Aspartate Amino Transferase 15 U/L (5-31); Bilirubin Total 0.5 mg/dL (0.0-1.0); Blood Urea Nitrogen 10 mg/dL (9-16); Calcium 9.3 mg/dL (8.4-10.2); Carbon Dioxide 25 mmol/L (22-29); Chloride 107 mmol/L (96-108); Estimated Glomerular Filt Rate > 60; Glucose Random 141 mg/dL (60-115); Potassium 3.7 mmol/L (3.3-5.1); Sodium 139 mmol/L (135-145); Total Protein 6.9 g/dL (6.5-8.0)
[2024-01-20 16:46] LABS: Creatinine Urine 242.43 mg/dL; Microalbum/Creatinine Ratio Ur 5.3 ug/mg cr (<30)
[2024-01-20 16:48] LABS: TSH reflex Free T4 1.28 uIU/mL (0.32-4.0)
== END 2024-01-20 13:24 | disposition home or self-care (01) ==
LOC: HO.HMGCLDS 13:23
PROVIDERS: PCP Internal Medicine; Visit Provider Internal Medicine
DX: E66.01 Morbid (severe) obesity due to excess calories (principal); E11.69 Type 2 diabetes mellitus with other specified complication
CPT/HCPCS: 36415; 80053; 82043; 82570; 83036; 84443; 85025

== ENCOUNTER 2024-02-24 13:57 | Outpatient (AMB) | payer OTHER, SELFPAY ==
--- NOTE | 2024-02-24 13:58 | MHC.PC.OV ---
Vital Signs 02/24/24 13:59 Height 5 ft 6 in Weight 256 lb BMI 41.3 BP 120/82 Blood Pressure Location Lt brachial Position Sitting Pulse 106 H Pulse Source Pulse Oximeter Pulse Oximetry (%) 98 Oxygen Delivery Method Room Air Intake Visit Reasons: lab results, Ozempic Allergies Penicillins [PENICILLINS] Allergy (Severe, Verified 02/24/24 13:58) SHORTNESS OF BREATH amoxicillin [AMOXICILLIN] Allergy (Unknown, Verified 02/24/24 13:58) DIFFICULTY BREATHING, shortness of breath Medication List - Last Reconciled 02/24/24 by Simba Padron MD blood sugar diagnostic (FreeStyle Lite Strips) test blood sugar once a day blood-glucose meter (FreeStyle Lite Meter kit) As directed cetirizine (Zyrtec) 10 mg PO DAILY PRN lancets (FreeStyle Lancets) test blood sugar once a day metformin 1,000 mg PO BID 90 days semaglutide 1 mg (0.75 mL) subcut QWEEK 30 days Tobacco use date assessed: 02/24/24 Dental Screening Dental Screen Date: 02/24/24 Did you have a dental visit in the last 12 months?: Yes Did you have a dental problem in the last 6 months where you did not have access to dental care?: No Was dental information given to patient?: Patient has dentist HPI lab results, Ozempic HPI Details Patient is a 33-year-old female came in for f/u apt tells me she feels great Doing well with semaglutide injections, patient was able to lose more wt she is still taking metformin, she is tolerating it well monitoring her sugars at home pt will return in 3 M for f.u lab order placed to be done before next visit [facility]MERLY [facility] Medical History delivery delivered Knee injuries Diabetes Surgical History Hx of tonsillectomy H/O knee surgery Family History Father Hypertension Diabetes Mother Hypertension Social History Household Members: Spouse and Children Housing: House Are you a primary nonfarm animal caretaker to a significant other at home: Yes (children) Patient Tobacco Use Status: Never used Tobacco e-Cigarette/Vaping Use: Never Used service: No Current occupational status: employed 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 1. Little interest or pleasure in doing things: not at all 2. Feeling down, depressed, or hopeless: not at all 3. Trouble falling or staying asleep, or sleeping too much: not at all 4. Feeling tired or having little energy: not at all 5. Poor appetite or overeating: not at all 6. Feeling bad about yourself - or that you are a failure or have let yourself or your family down: not at all 7. Trouble concentrating on things, such as reading the newspaper or watching television: not at all 8. Moving or speaking so slowly that other people could have noticed. Or the opposite - being so fidgety or restless that you have been moving around a lot more than usual: not at all 9. Thoughts that you would be better off or of hurting yourself in some way: not at all Total score: 0 Depression Screening Interpretation: Negative Depression Screening Done: Yes 67683 - PHQ-9 Billing: Yes Source: Developed by Drs. Jelani Silvestre, Sarahi Valle, Hari Logan and colleagues, with an educational crispin from [employer]. Thrive Questionnaire Date Thrive assessed: 02/24/24 I am a: Patient What is your living situation today?: I have a steady place to live Within the past 12 months, did the food you bought not last and you didn't have the money to get more?: Never true Within the past 12 months, did you worry whether your food would run out before you got money to buy more?: Never true Do you have trouble paying for medicines?: No Do you have trouble getting transportation to medical appointments?: No Do you have trouble paying your heating and electricity bill?: No Do you have trouble taking care of your child, family member or friend?: No Do you have trouble with day-to-day activities such as bathing, preparing meals, shopping, managing finances, etc.?: No Are you currently unemployed and looking for a job?: No Are you interested in more education?: No Please select the resources that you would like help with: None Currently or been in a relationship where the following occur: No concerns reported THRIVE Score: 0 AUDIT C Alcohol Use Questionnaire (AUDIT-C) 1. How often do you have a drink containing alcohol?: Never 3. How often do you have six or more drinks on one occasion?: Never Total Score: 0 Score Reviewed/Action Taken: Yes DEVORAH-7 AMB Questionnaire DEVORAH-7 Date DEVORAH - 7 assessed: 02/24/24 Feeling nervous, anxious, or on edge: 0 = Not at all Not being able to stop or control worryin = Not at all Worrying too much about different things: 0 = Not at all Trouble relaxin = Not at all Being so restless that it is hard to sit still: 0 = Not at all Becoming easily annoyed or irritable: 0 = Not at all Feeling afraid as if something awful might happen: 0 = Not at all Total DEVORAH-7 score (0-4 normal; 5-9 mild; 10-14 moderate; 15-21 severe): 0 Source: Developed by Drs. Jelani Silvestre, Sarahi Valle, Hari Logan and colleagues, with an educational crispin from [employer]. DEVORAH-7 Assessment Billing DEVORAH-7 Assessment Tool: DEVORAH-7 Assessment 00066 Review of Systems Const Denies chills and Denies fever(s) ENT Denies epistaxis and Denies nasal discharge Card Denies chest pain Resp Denies chest congestion, Denies cough and Denies hemoptysis GI Denies diarrhea and Denies nausea Skin/Breast Denies rash Neuro Reports no additional complaints Psych Reports no additional complaints Endo Reports no additional complaints Physical exam (Primary Care) Vital Signs: Last Vital Signs Pulse 106 H 02/24/24 13:59 BP 120/82 02/24/24 13:59 Pulse Ox 98 02/24/24 13:59 Oxygen Delivery Method Room Air 02/24/24 13:59 BMI result Body Mass Index 41.3 Tobacco/Smoking Status: Tobacco use Status Tobacco use date assessed 02/24/24 02/24/24 13:59 Patient Tobacco Use Status Never used Tobacco 02/24/24 13:59 e-Cigarette/Vaping Use Never Used 02/24/24 13:59 PHQ-9: PHQ-9 Score PHQ-9: Total score 0 02/24/24 14:12 Depression Screening Interpretation: Negative Thrive Assessment: Date of Thrive Assessment Date Thrive assessed 02/24/24 02/24/24 13:59 Currently or been in a relationship where the following occur: No concerns reported Const General: cooperative, comfortable and no acute distress Orientation/consciousness: patient oriented x3 HENMT Head: Yes normocephalic Eyes General: appearance normal, both eyes and all related structures Neck Neck: Yes supple Resp Effort & Inspection: normal respiratory effort, no cough and no stridor Cardio Rhythm: regular rhythm Heart sounds: S1 normal heart sound present and S2 normal heart sound present Skin General skin exam: turgor normal Neuro General: patient oriented x3, tone normal and moves all extremities Extrem Right lower extremity: no edema Left lower extremity: no edema Assessment and Plan Assessment & Plan (1) Diabetes mellitus type 2 in obese: Code(s): . - Type 2 diabetes mellitus with other specified complication; E66.9 - Obesity, unspecified (2) Morbid obesity due to excess calories: Code(s): E66.01 - Morbid (severe) obesity due to excess calories Plan Patient is a 33-year-old female came in for f/u apt tells me she feels great Doing well with semaglutide injections, patient was able to lose more wt she is still taking metformin, she is tolerating it well monitoring her sugars at home pt will return in 3 M for f.u lab order placed to be done before next visit Orders: Orders Hemoglobin A1c 3 Months - Type 2 diabetes mellitus with other specified complication, E66.01 - Morbid (severe) obesity due to excess calories, E66.9 - Obesity, unspecified Complete Blood Count Auto Diff 3 Months - Type 2 diabetes mellitus with other specified complication, E66.01 - Morbid (severe) obesity due to excess calories, E66.9 - Obesity, unspecified Comprehensive Met. Panel 3 Months - Type 2 diabetes mellitus with other specified complication, E66.01 - Morbid (severe) obesity due to excess calories, E66.9 - Obesity, unspecified TSH reflex Free T4 3 Months - Type 2 diabetes mellitus with other specified complication, E66.01 - Morbid (severe) obesity due to excess calories, E66.9 - Obesity, unspecified Amylase 3 Months E11.69 - Type 2 diabetes mellitus with other specified complication, E66.01 - Morbid (severe) obesity due to excess calories, E66.9 - Obesity, unspecified Coding Level of Care Code Est Pt Level 3 (65878) Diagnoses Diabetes mellitus type 2 in obese E11.69; E66.9 Morbid obesity due to excess calories E66.01 Additional Codes DEVORAH-7 Assessment Billing - DEVORAH-7 Assessment Tool: DEVORAH-7 Assessment [id number] ([id number])
[2024-02-24 13:59] VITALS: BP 120/82; PULSE 106; O2SAT 98; BMI 41.3
== END 2024-02-24 14:17 | disposition home or self-care (01) ==
PROVIDERS: PCP Internal Medicine; Visit Provider Internal Medicine
DX: E11.69 Type 2 diabetes mellitus with other specified complication (principal); E66.01 Morbid (severe) obesity due to excess calories; Z68.41 Body mass index [BMI] 40.0-44.9, adult
CPT/HCPCS: 99213

== ENCOUNTER 2024-05-28 09:25 | Outpatient (REF) | payer OTHER, SELFPAY ==
[2024-05-28 13:18] LABS: MANUAL DIFF FLAG NO
[2024-05-28 13:32] LABS: Basophils Percent Auto 0.3 % (0-2); Eosinophils Absolute Auto 0.2 X10*3/uL (0.0-0.4); Eosinophils Percent Auto 1.8 % (0-4); Hematocrit 42.2 % (37.0-47.0); Hemoglobin 14.1 g/dl (12.0-16.0); Imm Gran Abs Auto 0.03 X10*3/uL (0.00-0.03); Imm Gran Pct Auto 0.3 % (0.0-0.4); Lymphocytes Absolute Auto 2.8 X10*3/uL (1.2-4.9); Lymphocytes Percent Auto 23.7 % (20-40); Mean Corpuscular HGB Conc 33.4 g/dl (31.0-35.0); Mean Corpuscular Hemoglobin 28.9 pg (27.0-33.0); Mean Corpuscular Volume 86.5 fL (80.0-98.0); Mean Platelet Volume 10.3 fL (9.4-12.3); Monocytes Absolute Auto 0.7 X10*3/uL (0.1-1.2); Monocytes Percent Auto 5.9 % (2-11); Platelet Count 359 X10*3/uL (160-400); Red Blood Count 4.88 X10*6/uL (4.20-5.50); Red Cell Distribution Width 12.8 % (11.0-16.0); White Blood Count 11.7 X10*3/uL (4.8-10.8)
[2024-05-28 13:41] LABS: Estimated Average Glucose 108 mg/dL; Hemoglobin A1C 132.9667 umol/L; Hemoglobin A1c % 5.4 % (<6.0)
[2024-05-28 14:22] LABS: Alanine Aminotransferase 15 U/L (0-31); Albumin Level 4.3 g/dL (3.5-5.0); Alkaline Phosphatase 41 U/L (39-117); Amylase 31 U/L (28-100); Anion Gap 11 (12-20); Aspartate Amino Transferase 18 U/L (5-31); Bilirubin Total 0.6 mg/dL (0.0-1.0); Blood Urea Nitrogen 14 mg/dL (9-16); Calcium 9.1 mg/dL (8.4-10.2); Carbon Dioxide 27 mmol/L (22-29); Chloride 104 mmol/L (96-108); Estimated Glomerular Filt Rate > 60; Glucose Random 110 mg/dL (60-115); Potassium 4.1 mmol/L (3.3-5.1); Sodium 138 mmol/L (135-145); Total Protein 7.2 g/dL (6.5-8.0)
[2024-05-28 14:24] LABS: TSH reflex Free T4 1.49 uIU/mL (0.32-4.0)
== END 2024-05-28 09:26 | disposition home or self-care (01) ==
LOC: HO.HMGCLDS 09:25
PROVIDERS: PCP Internal Medicine; Visit Provider Internal Medicine
DX: E11.69 Type 2 diabetes mellitus with other specified complication (principal); E66.01 Morbid (severe) obesity due to excess calories; E66.9 Obesity, unspecified
CPT/HCPCS: 36415; 80053; 82150; 83036; 84443; 85025

== ENCOUNTER 2024-05-30 13:08 | Outpatient (AMB) | payer OTHER, SELFPAY ==
[2024-05-30 13:09] VITALS: BP 122/76; PULSE 104; O2SAT 98; BMI 39.6
--- NOTE | 2024-05-30 13:09 | MHC.PC.OV ---
Vital Signs 05/30/24 13:09 Height 5 ft 6 in Weight 245 lb 6 oz BMI 39.6 BP 122/76 Blood Pressure Location Lt brachial Position Sitting Pulse 104 H Pulse Source Pulse Oximeter Pulse Oximetry (%) 98 Oxygen Delivery Method Room Air Intake Visit Reasons: 3M F/U Allergies Penicillins [PENICILLINS] Allergy (Severe, Verified 05/30/24 13:10) SHORTNESS OF BREATH amoxicillin [AMOXICILLIN] Allergy (Unknown, Verified 05/30/24 13:10) DIFFICULTY BREATHING, shortness of breath Medication List - Last Reconciled 05/30/24 by Simba Padron MD blood sugar diagnostic (FreeStyle Lite Strips) test blood sugar once a day blood-glucose meter (FreeStyle Lite Meter kit) As directed cetirizine (Zyrtec) 10 mg PO DAILY PRN lancets (FreeStyle Lancets) test blood sugar once a day metformin 1,000 mg PO BID 90 days semaglutide 2 mg (0.75 mL) subcut QWEEK 30 days Tobacco use date assessed: 05/30/24 Dental Screening Dental Screen Date: 05/30/24 Did you have a dental visit in the last 12 months?: Yes Did you have a dental problem in the last 6 months where you did not have access to dental care?: No Was dental information given to patient?: Patient has dentist HPI 3M F/U HPI Details The patient is a 33-year-old female presenting for a follow-up visit regarding weight management and to review her recent laboratory results. She has been successfully losing weight, currently weighing 245.5 pounds, down from 256 pounds in February. She has been on semaglutide 2 mg for weight loss, which she tolerates well without side effects. She also reports having a mild cold for two days, characterized by nasal congestion and sinus pressure, but without fever or cough. She denies any recent significant illness or infection among household members, although her daughter suffers from allergies that exacerbate her asthma. The patient's Glycated Hemoglobin (HbA1c) improved from 6.2% in August to 5.4% in the recent labs. Medications: Takes vplc-bfz-chdroud medications for current upper respiratory symptoms. Plan Overweight/Obesity: Continue current regimen of semaglutide 2 mg and reassess in three months. - Recent Upper Respiratory Infection: No specific medical treatment required as symptoms are mild and non-progressive. - Scheduled follow-up visit in three months with lab work prior to the visit. Restriction for patient Continue current semaglutide therapy without changes. - Monitor and manage current mild cold symptoms with syvn-daf-rjujhxm medications as needed. - Schedule and complete laboratory tests before the next follow-up visit in three months. - Return for a follow-up visit in three months. - Prepare for the physical examination scheduled in October. Discussion During today's visit, I reviewed the patient's recent progress regarding weight management and reinforced the continuation of semaglutide 2 mg therapy, which has been effective. We discussed her recent mild upper respiratory symptoms which do not require further medical intervention. I ensured that no significant infections were apparent in her exam. We agreed that she would return in three months for a follow-up appointment, and she will need to have laboratory work done prior to that appointment. We also confirmed her upcoming physical in October. 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 Sexual orientation: Straight/Heterosexual Gender identity: Female Cognitive needs: No Hearing needs: No Vision needs: No Questionnaire Thrive Questionnaire Date Thrive assessed: 05/30/24 I am a: Patient What is your living situation today?: I have a steady place to live Within the past 12 months, did the food you bought not last and you didn't have the money to get more?: Never true Within the past 12 months, did you worry whether your food would run out before you got money to buy more?: Never true Do you have trouble paying for medicines?: No Do you have trouble getting transportation to medical appointments?: No Do you have trouble paying your heating and electricity bill?: No Do you have trouble taking care of your child, family member or friend?: No Do you have trouble with day-to-day activities such as bathing, preparing meals, shopping, managing finances, etc.?: No Are you currently unemployed and looking for a job?: No Are you interested in more education?: No Please select the resources that you would like help with: None Currently or been in a relationship where the following occur: No concerns reported THRIVE Score: 0 AUDIT C Alcohol Use Questionnaire (AUDIT-C) 1. How often do you have a drink containing alcohol?: Never 3. How often do you have six or more drinks on one occasion?: Never Total Score: 0 Score Reviewed/Action Taken: Yes DEVORAH-7 AMB Questionnaire DEVORAH-7 Date DEVORAH - 7 assessed: 02/24/24 Source: Developed by Drs. Jelani Silvestre, Sarahi Valle, Hari Logan and colleagues, with an educational crispin from [employer]). Review of Systems Const Denies chills and Denies fever(s) ENT Denies epistaxis and Denies nasal discharge Card Denies chest pain Resp Denies chest congestion, Denies cough and Denies hemoptysis GI Denies diarrhea and Denies nausea Skin/Breast Denies rash Neuro Reports no additional complaints Psych Reports no additional complaints Endo Reports no additional complaints Physical exam (Primary Care) Vital Signs: Last Vital Signs Pulse 104 H 05/30/24 13:09 BP 122/76 05/30/24 13:09 Pulse Ox 98 05/30/24 13:09 Oxygen Delivery Method Room Air 05/30/24 13:09 BMI result Body Mass Index 39.6 Tobacco/Smoking Status: Tobacco use Status Tobacco use date assessed 05/30/24 05/30/24 13:12 Patient Tobacco Use Status Never used Tobacco 05/30/24 13:12 e-Cigarette/Vaping Use Never Used 05/30/24 13:12 Thrive Assessment: Date of Thrive Assessment Date Thrive assessed 05/30/24 05/30/24 13:15 Currently or been in a relationship where the following occur: No concerns reported Const General: cooperative, comfortable and no acute distress Orientation/consciousness: patient oriented x3 HENMT Other: No exudate uvula midline Head: Yes normocephalic Eyes General: appearance normal, both eyes and all related structures Neck Neck: Yes supple Resp Effort & Inspection: normal respiratory effort, no cough and no stridor Cardio Rhythm: regular rhythm Heart sounds: S1 normal heart sound present and S2 normal heart sound present Skin General skin exam: turgor normal Neuro General: patient oriented x3, tone normal and moves all extremities Extrem Right lower extremity: no edema Left lower extremity: no edema Coding Level of Care Code Est Pt Level 3 (63046) Diagnoses Diabetes mellitus type 2 in obese E11.69; E66.9 Morbid obesity due to excess calories E66.01 Head cold J00 Weight loss due to medication R63.4; T50.905A Assessment & Plan Assessment & Plan (1) Diabetes mellitus type 2 in obese: Code(s): E11.69 - Type 2 diabetes mellitus with other specified complication; E66.9 - Obesity, unspecified Category: Medical (2) Morbid obesity due to excess calories: Code(s): E66.01 - Morbid (severe) obesity due to excess calories Category: Medical (3) Head cold: Code(s): J00 - Acute nasopharyngitis [common cold] Category: Medical (4) Weight loss due to medication: Code(s): R63.4 - Abnormal weight loss; T50.905A - Adverse effect of unspecified drugs, medicaments and biological substances, initial encounter Category: Medical Plan The patient is a 33-year-old female presenting for a follow-up visit regarding weight management and to review her recent laboratory results. She has been successfully losing weight, currently weighing 245.5 pounds, down from 256 pounds in February. She has been on semaglutide 2 mg for weight loss, which she tolerates well without side effects. She also reports having a mild cold for two days, characterized by nasal congestion and sinus pressure, but without fever or cough. She denies any recent significant illness or infection among household members, although her daughter suffers from allergies that exacerbate her asthma. The patient's Glycated Hemoglobin (HbA1c) improved from 6.2% in August to 5.4% in the recent labs. Medications: Takes tcch-hbw-[id number] medications for current upper respiratory symptoms. Plan Overweight/Obesity: Continue current regimen of semaglutide 2 mg and reassess in three months. - Recent Upper Respiratory Infection: No specific medical treatment required as symptoms are mild and non-progressive. - Scheduled follow-up visit in three months with lab work prior to the visit. Restriction for patient Continue current semaglutide therapy without changes. - Monitor and manage current mild cold symptoms with gysp-acp-kifaamj medications as needed. - Schedule and complete laboratory tests before the next follow-up visit in three months. - Return for a follow-up visit in three months. - Prepare for the physical examination scheduled in October. Discussion During today's visit, I reviewed the patient's recent progress regarding weight management and reinforced the continuation of semaglutide 2 mg therapy, which has been effective. We discussed her recent mild upper respiratory symptoms which do not require further medical intervention. I ensured that no significant infections were apparent in her exam. We agreed that she would return in three months for a follow-up appointment, and she will need to have laboratory work done prior to that appointment. We also confirmed her upcoming physical in October. Orders: Orders Lipase 3 Months E11.69 - Type 2 diabetes mellitus with other specified complication, E66.01 - Morbid (severe) obesity due to excess calories, E66.9 - Obesity, unspecified, J00 - Acute nasopharyngitis [common cold], R63.4 - Abnormal weight loss, T50.905A - Adverse effect of unspecified drugs, medicaments and biological substances, initial encounter Hemoglobin A1c 3 Months E11. - Type 2 diabetes mellitus with other specified complication, E66.01 - Morbid (severe) obesity due to excess calories, E66.9 - Obesity, unspecified, J00 - Acute nasopharyngitis [common cold], R63.4 - Abnormal weight loss, T50.905A - Adverse effect of unspecified drugs, medicaments and biological substances, initial encounter Comprehensive Met. Panel 3 Months E11.69 - Type 2 diabetes mellitus with other specified complication, E66.01 - Morbid (severe) obesity due to excess calories, E66.9 - Obesity, unspecified, J00 - Acute nasopharyngitis [common cold], R63.4 - Abnormal weight loss, T50.905A - Adverse effect of unspecified drugs, medicaments and biological substances, initial encounter TSH reflex Free T4 3 Months E11. - Type 2 diabetes mellitus with other specified complication, E66.01 - Morbid (severe) obesity due to excess calories, E66.9 - Obesity, unspecified, J00 - Acute nasopharyngitis [common cold], R63.4 - Abnormal weight loss, T50.905A - Adverse effect of unspecified drugs, medicaments and biological substances, initial encounter Amylase 3 Months E11.69 - Type 2 diabetes mellitus with other specified complication, E66.01 - Morbid (severe) obesity due to excess calories, E66.9 - Obesity, unspecified, J00 - Acute nasopharyngitis [common cold], R63.4 - Abnormal weight loss, T50.905A - Adverse effect of unspecified drugs, medicaments and biological substances, initial encounter
== END 2024-05-30 14:10 | disposition home or self-care (01) ==
PROVIDERS: PCP Internal Medicine; Visit Provider Internal Medicine
DX: E11.69 Type 2 diabetes mellitus with other specified complication (principal); E66.01 Morbid (severe) obesity due to excess calories; Z68.39 Body mass index [BMI] 39.0-39.9, adult; J00 Acute nasopharyngitis [common cold]; T50.905A Adverse effect of unspecified drugs, medicaments and biological substances, initial encounter

== ENCOUNTER → 2024-05-30 13:08 | Outpatient (BNVA) | payer OTHER, SELFPAY | PROVIDERS: PCP Internal Medicine; Visit Provider Internal Medicine ==

== ENCOUNTER 2024-08-21 11:05 | Outpatient (REF) | payer OTHER, SELFPAY ==
--- OUTSIDE RECORDS SUMMARY | 2024-08-21 12:34 | XMS_ITS | Clinical Summary ---
Author Organization [employer] Address [address] [place] [address] Care Team Providers Care Leak Patcher Name Role Phone Blaine Valenzuela MD Primary Care Provider [phone] Allergies Active Allergy Reactions Criticality Noted Date Comments Penicillins Other (See Comments) 04/01/2015 Patient states feels like there is an elephant on my chest Medications ciprofloxacin- dexamethasone (CIPRODEX) otic suspension 4 drops in affected ear(s) 2 times daily for 7 days. 7.5 mL 1 Active metFORMIN (GLUCOPHAGE) 1000 MG tablet TAKE 1 TABLET BY MOUTH TWICE A DAY 4 Active Ozempic 0.25 mg or 0.5 mg (2 mg/3 mL) pnij 0.25 MG (0.368 ML) SUBCUTANEOUSLY EVERY WEEK FOR 30 DAYS FOR 4 WEEKS 4 Active Ozempic 1 mg/dose (4 mg/3 mL) INJECT 0.75 ML SUBCUTANEOUSLY EVERY WEEK FOR 4 WEEKS 4 Active fexofenadine (Nora Allergy) 180 MG tablet Take 1 tablet (180 mg total) by mouth daily 30 tablet 2 4 025 Active Immunizations Name Administration Dates Next Due Flucelvax Trivalent PFS IM; Without Preservative (18+ mos) 03/19/2024 Social History Tobacco Use Types Packs/Day Years Used Date Smoking Tobacco: Never Smokeless Tobacco: Never Alcohol Use Standard Drinks/Week Comments Not Asked 0 (1 standard drink = 0.6 oz pur e alcohol) Comments No Sex and Gender Information Value Date Recorded Sex Assigned at Not on file Legal Sex Female 1:08 PM EDT Gender Identity Not on file Sexual Orientation Not on file Last Filed Vital Signs Vital Sign Reading Time Taken Comments Blood Pressure 136/86 03/19/2024 12:14 PM EDT Pulse 99 03/19/2024 12:14 PM EDT Temperature 36.4 ??C (97.6 ??F) 03/19/2024 12:14 PM E DT Respiratory Rate 18 03/19/2024 12:14 PM EDT Oxygen Saturation 99% 03/19/2024 12:14 PM EDT Inhaled Oxygen Concentration - - Weight 127 kg (280 lb) 03/27/2021 4:37 PM EDT Height 167.6 cm (5' 6 ) 03/27/2021 4:37 PM EDT Body Mass Index 45.19 03/27/2021 4:37 PM EDT Plan of Treatment Health Maintenance Due Date Last Done Comments Pneumococcal Vaccination Scr eening: Pts 0-19 & 19-64 yrs of age ([facility]) (1 of 2 - PCV) 1994 Depression: Screening Annual ly using PHQ-2/9 in Adults 18 yrs or above (or HM Modifier)([facility]) 2006 Hepatitis C Virus Infection in Adolescents and Adults: Screening (or Modifier) ([facility]) 2006 Human Immunodeficiency Virus (HIV) Infection: Screening Annually (or Modifier)([facility]) 2006 [facility] Screening Reminder: Carli ren for all adults ([facility]) 2006 Lipid Screening: Once for Wo men aged 20 to 45 yrs ([facility]) 2008 Cervical Cancer Screenin 1-65 yrs of age (or Modifier) 2009 Cervical Cancer Screening: P ap every 3 yrs pts age 21-65 2009 Cervical Cancer: Pap Screeni ng with Modifier timing ([facility]) 2009 Cervical Cancer: hrHPV alone or with cotesting Pap for Pts 30-65yrs screening every 5yrs ([facility]) 2009 DTaP/Tdap/Td Vaccines ([facility]) (2 - Td or Tdap) 0 11/18/2009 COVID-19 Vaccine Screening: Initial Series and Booster Status ([facility]) ( - 2023- season) 2024 Zoster/Shingles Vaccine Seri es Screening: Adults aged 18+ yrs (or HM Modifiers)([facility]) (1 of 2) 2038 Flu Vaccination: Yearly for ages 18mos through 64 years (or Modifier)([facility]) Completed 03/19/2024 Medical Devices Not on file Insurance [facility] [address] [id number] Care Teams Leak Patcher Relationship Specialty Start Date End Date Blaine Valenzuela MD [facility] [address] [place] [id number] PCP - General Internal Medicine 03/27/21
--- OUTSIDE RECORDS SUMMARY | 2024-08-21 12:34 | XMS_ITS | Clinical Summary ---
Author Organization [facility] Address [address] [place] [address] Care Team Providers Care Jinrikisha Driver Name Role Phone Unavailable Primary Care Provider Unavailabl e Social History Tobacco Use Types Packs/Day Years Used Date Smoking Tobacco: Never Assessed Comments Unknown Sex and Gender Information Value Date Recorded Sex Assigned at Not on file Legal Sex Female 5:11 PM EST Gender Identity Not on file Sexual Orientation Not on file Plan of Treatment Health Maintenance Due Date Last Done Comments DTaP,Tdap,and Td Vaccines (1 - Tdap) 12/16/2007 Hepatitis B Vaccines (1 of 3 - 19+ 3-dose series) 12/16/2007 Cervical Cancer Screening: P ap Smear 2009 COVID-19 Vaccine ( - 2023-2 5 season) 2024 Influenza Vaccine (#1) 2024 Depression Screening 04/18/2024 HIV Screening 04/18/2024 Hepatitis C Screening 04/18/2024 Social Influencers of Health Screening 04/18/2024 HIB Vaccines Aged Out No longer eligi ble based on patient's age to complete this topic HPV Vaccines Aged Out No longer eligi ble based on patient's age to complete this topic Hepatitis A Vaccines Aged Out No long er eligible based on patient's age to complete this topic IPV Vaccines Aged Out No longer eligi ble based on patient's age to complete this topic MMR Vaccines Aged Out No longer eligi ble based on patient's age to complete this topic Meningococcal ACWY Vaccine Aged Out N o longer eligible based on patient's age to complete this topic Pneumococcal Vaccine: Pediat rics (0 to 5 Years) and At-Risk Patients (6 to 64 Years) Aged Out No longer eligible b ased on patient's age to complete this topic RSV Immunization Patients Un zi 20 months Aged Out No longer eligible b ased on patient's age to complete this topic Varicella Vaccines Aged Out No longer eligible based on patient's age to complete this topic
[2024-08-21 13:21] LABS: Estimated Average Glucose 111 mg/dL; Hemoglobin A1C 127.9192 umol/L; Hemoglobin A1c % 5.5 % (<6.0); Total Hemoglobin (HGBA1C) 3482.0953 umol/L
[2024-08-21 13:39] LABS: Alanine Aminotransferase 16 U/L (0-31); Albumin Level 4.1 g/dL (3.5-5.0); Alkaline Phosphatase 46 U/L (39-117); Amylase 34 U/L (28-100); Anion Gap 10 (12-20); Aspartate Amino Transferase 20 U/L (5-31); Bilirubin Total 0.4 mg/dL (0.0-1.0); Blood Urea Nitrogen 10 mg/dL (9-16); Calcium 9.3 mg/dL (8.4-10.2); Carbon Dioxide 26 mmol/L (22-29); Chloride 106 mmol/L (96-108); Estimated Glomerular Filt Rate > 60; Glucose Random 91 mg/dL (60-115); Lipase 38 U/L (8-78); Potassium 4.3 mmol/L (3.3-5.1); Sodium 138 mmol/L (135-145); Total Protein 7.5 g/dL (6.5-8.0)
[2024-08-21 13:57] LABS: TSH reflex Free T4 1.27 uIU/mL (0.32-4.0)
== END 2024-08-21 11:06 | disposition home or self-care (01) ==
LOC: HO.HMGCLDS 11:05
PROVIDERS: PCP Internal Medicine; Visit Provider Internal Medicine
DX: E11.69 Type 2 diabetes mellitus with other specified complication (principal); E66.01 Morbid (severe) obesity due to excess calories; Z68.39 Body mass index [BMI] 39.0-39.9, adult; H92.03 Otalgia, bilateral; J00 Acute nasopharyngitis [common cold]; J06.9 Acute upper respiratory infection, unspecified; R63.4 Abnormal weight loss; T50.905A Adverse effect of unspecified drugs, medicaments and biological substances, initial encounter; Z79.84 Long term (current) use of oral hypoglycemic drugs
CPT/HCPCS: 36415; 80053; 82150; 83036; 83690; 84443; 96127

== ENCOUNTER 2024-08-21 11:13 | Outpatient (AMB) | payer OTHER, SELFPAY ==
[2024-08-21 11:15] VITALS: BP 130/72; PULSE 91; TEMP 36.7; O2SAT 100; BMI 39.5
--- NOTE | 2024-08-21 11:15 | A.OFFPC_ITS ---
Vital Signs 08/21/24 11:15 Height 5 ft 6 in Weight 245 lb BMI 39.5 BP 130/72 Blood Pressure Location Lt brachial Position Sitting Pulse 91 Pulse Source Pulse Oximeter Temp 98.1 F Temp Source Oral Pulse Oximetry (%) 100 Oxygen Delivery Method Room Air Intake Visit Reasons: 3m follow up Allergies Penicillins [PENICILLINS] Allergy (Severe, Verified 08/21/24 11:28) SHORTNESS OF BREATH amoxicillin [AMOXICILLIN] Allergy (Unknown, Verified 08/21/24 11:28) DIFFICULTY BREATHING, shortness of breath Medication List - Last Reconciled 08/21/24 by Simba Padron MD blood sugar diagnostic (FreeStyle Lite Strips) test blood sugar once a day blood-glucose meter (FreeStyle Lite Meter kit) As directed cetirizine (Zyrtec) 10 mg PO DAILY PRN lancets (FreeStyle Lancets) test blood sugar once a day metformin 1,000 mg PO BID 90 days semaglutide 2 mg (0.75 mL) subcut QWEEK 30 days Tobacco use date assessed: 08/21/24 Dental Screening Dental Screen Date: 08/21/24 Did you have a dental visit in the last 12 months?: Yes Did you have a dental problem in the last 6 months where you did not have access to dental care?: No Was dental information given to patient?: Patient has dentist HPI 3m follow up HPI Details - The patient is a 33-year-old female pr esenting with a three-month follow-up for weight management. - On 2 mg of semaglutide since July, with no weight loss observed since May. - Engaging in increased physical activit y and dietary changes but perceives a plateau in progress. - Also reports recent onset of ear pain and difficulty swallowing, initially assessed at urgent care. - Diagnosed with fluid in the ears and p rescribed Claritin, resulting in persistent symptoms. - Negative testing for COVID-19, influen za, and streptococcal infections. - diabetes stable taking metformin 1 g b .i.d. - allergies: Continue long-acting antihi stamine Problem List - Obesity - Fluid in the ears - Allergy to Amoxicillin - diabetes mellitus Patient Instructions - Continue taking current medications - Use warm salt water gargles and over-t he-counter pain relief, such as Tylenol, as needed for ear discomfort. - Watch for worsening symptoms or new sy mptoms, and seek medical attention if needed. - azithromycin sent to pharmacy - Follow prescribed fasting before sched uled lab work in October. - Refill for semaglutide to be performed and continue the current dose, with reassessment in a couple of months. Review of Systems - General: No fever no chills - Neurological: No headaches no dizziness - Ear nose throat: no hearing difficulty no ear pain - Cardiovascular: No syncope, no chest pain, no palpitations - Gastrointestinal: No nausea vomiting or diarrhea - Endocrine: No polyuria polydipsia no heat intolerance - Genitourinary: No dysuria , no blood in urine Physical Exam General: No acute distress HEENT: Fluid by ears, painful to swallow, throat erythema present uvula midline left ear erythema present right ear within normal limit Neck: Supple Respiratory system: Able to talk in full sentences, lungs are clear, no audible wheeze cardiovascular: S1-S2 regular in rate and rhythm Gastrointestinal: No pain Extremities: No new findings ANGER CONTROL COUNSELOR: Alert awake oriented x3 motor sensory intact Skin: Normal turgor PFSH Medical History delivery delivered Knee injuries Diabetes Surgical History Hx of tonsillectomy H/O knee surgery Family History Father Hypertension Diabetes Mother Hypertension Social History Household Members: Spouse and Children Housing: House Are you a 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 1. Little interest or pleasure in doing things: not at all 2. Feeling down, depressed, or hopeless: not at all 3. Trouble falling or staying asleep, or sleeping too much: not at all 4. Feeling tired or having little energy: not at all 5. Poor appetite or overeating: not at all 6. Feeling bad about yourself - or that you are a failure or have let yourself or your family down: not at all 7. Trouble concentrating on things, such as reading the newspaper or watching television: not at all 8. Moving or speaking so slowly that other people could have noticed. Or the opposite - being so fidgety or restless that you have been moving around a lot more than usual: not at all 9. Thoughts that you would be better off or of hurting yourself in some way: not at all Total score: 0 Depression Screening Interpretation: Negative Depression Screening Done: Yes 86149 - PHQ-9 Billing: Yes Source: Developed by Drs. Jelani Silvestre, Sarahi Valle, Hari Logan and colleagues, with an educational crispin from [employer]. Thrive Questionnaire Date Thrive assessed: 08/21/24 I am a: Patient What is your living situation today?: I have a steady place to live Within the past 12 months, did the food you bought not last and you didn't have the money to get more?: Never true Within the past 12 months, did you worry whether your food would run out before you got money to buy more?: Never true Do you have trouble paying for medicines?: No Do you have trouble getting transportation to medical appointments?: No Do you have trouble paying your heating and electricity bill?: No Do you have trouble taking care of your child, family member or friend?: No Do you have trouble with day-to-day activities such as bathing, preparing meals, shopping, managing finances, etc.?: No Are you currently unemployed and looking for a job?: No Are you interested in more education?: No Please select the resources that you would like help with: None Currently or been in a relationship where the following occur: No concerns reported THRIVE Score: 0 AUDIT C Alcohol Use Questionnaire (AUDIT-C) 1. How often do you have a drink containing alcohol?: Never 3. How often do you have six or more drinks on one occasion?: Never Total Score: 0 Score Reviewed/Action Taken: Yes DEVORAH-7 AMB Questionnaire DEVORAH-7 Date DEVORAH - 7 assessed: 08/21/24 Feeling nervous, anxious, or on edge: 0 = Not at all Not being able to stop or control worryin = Not at all Worrying too much about different things: 0 = Not at all Trouble relaxin = Not at all Being so restless that it is hard to sit still: 0 = Not at all Becoming easily annoyed or irritable: 0 = Not at all Feeling afraid as if something awful might happen: 0 = Not at all Total DEVORAH-7 score (0-4 normal; 5-9 mild; 10-14 moderate; 15-21 severe): 0 Source: Developed by Drs. Jelani Silvestre, Sarahi Valle, Hari Logan and colleagues, with an educational crispin from [employer]. DEVORAH-7 Assessment Billing DEVORAH-7 Assessment Tool: DEVORAH-7 Assessment 20170 Physical exam (Primary Care) Vital Signs: Last Vital Signs Temp 98.1 F 08/21/24 11:15 Pulse 91 08/21/24 11:15 BP 130/72 08/21/24 11:15 Pulse Ox 100 08/21/24 11:15 Oxygen Delivery Method Room Air 08/21/24 11:15 BMI result Body Mass Index 39.5 Tobacco/Smoking Status: Tobacco use Status Tobacco use date assessed 08/21/24 08/21/24 11:19 Patient Tobacco Use Status Never used Tobacco 08/21/24 11:19 e-Cigarette/Vaping Use Never Used 08/21/24 11:19 PHQ-9: PHQ-9 Score PHQ-9: Total score 0 08/21/24 11:56 Depression Screening Interpretation: Negative Thrive Assessment: Date of Thrive Assessment Date Thrive assessed 08/21/24 08/21/24 11:19 Currently or been in a relationship where the following occur: No concerns reported Coding Level of Care Code Est Pt Level 4 (25238) Diagnoses Diabetes mellitus type 2 in obese E11.69; E66.9 Acute pain of both ears H92.03 Sore throat J02.9 Morbid obesity due to excess calories E66.01 Head cold J00 Weight loss due to medication R63.4; T50.905A Additional Codes DEVORAH-7 Assessment Billing - DEVORAH-7 Assessment Tool: DEVORAH-7 Assessment 53811 ([id number]) PHQ-9 - 60647 - PHQ-9 Billing: Yes ([id number]) Assessment & Plan Assessment & Plan (1) Diabetes mellitus type 2 in obese: Code(s): E11.69 - Type 2 diabetes mellitus with other specified complication; E66.9 - Obesity, unspecified Category: Medical (2) Acute pain of both ears: Code(s): H92.03 - Otalgia, bilateral Category: Medical (3) Sore throat: Code(s): J02.9 - Acute pharyngitis, unspecified Category: Medical (4) Morbid obesity due to excess calories: Code(s): E66.01 - Morbid (severe) obesity due to excess calories Category: Medical (5) Head cold: Code(s): J00 - Acute nasopharyngitis [common cold] Category: Medical (6) Weight loss due to medication: Code(s): R63.4 - Abnormal weight loss; T50.905A - Adverse effect of unspecified drugs, medicaments and biological substances, initial encounter Category: Medical Plan - The patient is a 33-year-old female presenting with a three-month follow-up for weight management. - On 2 mg of semaglutide since July, with no weight loss observed since May. - Engaging in increased physical activity and dietary changes but perceives a plateau in progress. - Also reports recent onset of ear pain and difficulty swallowing, initially assessed at urgent care. - Diagnosed with fluid in the ears and prescribed Claritin, resulting in persistent symptoms. - Negative testing for COVID-19, influenza, and streptococcal infections. - diabetes stable taking metformin 1 g b.i.d. - allergies: Continue long-acting antihistamine Problem List - Obesity - Fluid in the ears - Allergy to Amoxicillin - diabetes mellitus Patient Instructions - Continue taking current medications - Use warm salt water gargles and ywhe-esu-uehgbpl pain relief, such as Tylenol, as needed for ear discomfort. - Watch for worsening symptoms or new symptoms, and seek medical attention if needed. - azithromycin sent to pharmacy - Follow prescribed fasting before scheduled lab work in October. - Refill for semaglutide to be performed and continue the current dose, with reassessment in a couple of months. Orders: Orders Comprehensive [place]. Panel Fast 4 Weeks E11.69 - Type 2 diabetes mellitus with other specified complication, E66.01 - Morbid (severe) obesity due to excess calories, E66.9 - Obesity, unspecified Hemoglobin A1c 4 Weeks E11.69 - Type 2 diabetes mellitus with other specified complication, E66.01 - Morbid (severe) obesity due to excess calories, E66.9 - Obesity, unspecified Amylase 4 Weeks R63.4 - Abnormal weight loss, T50.905A - Adverse effect of unspecified drugs, medicaments and biological substances, initial encounter Complete Blood Count Auto Diff 4 Weeks . - Type 2 diabetes mellitus with other specified complication, E66.01 - Morbid (severe) obesity due to excess calories, E66.9 - Obesity, unspecified Lipid Panel 4 Weeks . - Type 2 diabetes mellitus with other specified complication, E66.01 - Morbid (severe) obesity due to excess calories, E66.9 - Obesity, unspecified Microalbumin, Random (w Creat) 4 Weeks . - Type 2 diabetes mellitus with other specified complication, E66.01 - Morbid (severe) obesity due to excess calories, E66.9 - Obesity, unspecified Lipase 4 Weeks R63.4 - Abnormal weight loss, T50.905A - Adverse effect of unspecified drugs, medicaments and biological substances, initial encounter Medications: New azithromycin Take 2 tablets today then 1 daily 250 mg PO ONCE 5 days 6 tabs 0RF J06.9 - Acute upper respiratory infection, unspecified Refilled semaglutide for 4 weeks 2 mg (0.75 mL) subcut QWEEK 30 days 3.75 mL 2RF . - Type 2 diabetes mellitus with other specified complication, E66.01 - Morbid (severe) obesity due to excess calories, E66.9 - Obesity, unspecified
== END 2024-08-21 11:53 | disposition home or self-care (01) ==
PROVIDERS: PCP Internal Medicine; Visit Provider Internal Medicine
DX: E11.69 Type 2 diabetes mellitus with other specified complication (principal); E66.01 Morbid (severe) obesity due to excess calories; H92.03 Otalgia, bilateral; Z68.39 Body mass index [BMI] 39.0-39.9, adult; J02.9 Acute pharyngitis, unspecified; J00 Acute nasopharyngitis [common cold]; R63.4 Abnormal weight loss; T50.905A Adverse effect of unspecified drugs, medicaments and biological substances, initial encounter

== ENCOUNTER → 2024-11-05 15:55 | Outpatient (BNVA) | payer OTHER, SELFPAY | PROVIDERS: PCP Internal Medicine; Visit Provider Internal Medicine ==

== ENCOUNTER 2025-06-24 09:39 | Outpatient (REF) | payer OTHER, SELFPAY ==
--- NOTE | ~2025-06-24 | XR_ITS ---
EXAMINATION: XR KNEE, LEFT CLINICAL INFORMATION: M25.562 - Pain in left knee COMPARISON: 04/26/2023 TECHNIQUE: Four views of the left knee. FINDINGS: There is moderate narrowing of the medial joint space. There are tricompartmental marginal osteophytes. There is subchondral sclerosis in the medial femoral condyle and medial tibial plateau. There is a joint effusion. XR/XR knee LT 4V IMPRESSION: Moderate osteoarthritis with a joint effusion. Electronically signed by: Heber Alves MD 06/24/2025 11:43 AM EST [facility]
--- NOTE | ~2025-06-24 | XR_ITS ---
EXAMINATION: XR ANKLE, left CLINICAL INFORMATION: S99.912A - Unspecified injury of left ankle, initial encounter COMPARISON: None available. TECHNIQUE: AP, lateral, and mortise views lower extremity joint, ankle. FINDINGS: Ankle mortise is congruent. There is no widening of the syndesmosis. Talar dome is intact. There is a small plantar and a small Achilles tendon insertion calcaneal enthesophyte(s). XR/XR ankle LT min 3V IMPRESSION: No acute abnormality. Small calcaneal spurs. Electronically signed by: Heber Alves MD 06/24/2025 11:41 AM EST
== END 2025-06-24 09:40 | disposition home or self-care (01) ==
LOC: HO.HMGCX 09:39
PROVIDERS: PCP Internal Medicine; Visit Provider Nurse Practitioner Family
DX: S99.912A Unspecified injury of left ankle, initial encounter (principal); M25.562 Pain in left knee; W00.0XXA Fall on same level due to ice and snow, initial encounter; Y92.009 Unspecified place in unspecified non-institutional (private) residence as the place of occurrence of the external cause; Y93.E9 Activity, other interior property and clothing maintenance; Y99.8 Other external cause status
CPT/HCPCS: 73564; 73610

== ENCOUNTER 2025-06-24 09:39 | Outpatient (AMB) | payer OTHER, SELFPAY ==
[2025-06-24 10:44] VITALS: BP 130/72; PULSE 98; O2SAT 98
--- NOTE | 2025-06-24 10:44 | AM.OFFWIN_ITS ---
Intake Vital Signs 06/24/25 10:44 Height 5 ft 6 in BMI Reason not done Patient refused/unable BP 130/72 Blood Pressure Location Lt brachial Position Sitting Pulse 98 Pulse Source Pulse Oximeter Pulse Oximetry (%) 98 Oxygen Delivery Method Room Air Intake Visit Reasons: EP Left leg injury Intake Note: pt is here for left leg injury, fell at home taking trash out this morning Patient Tobacco Use Status: Never used Tobacco Allergies Penicillins (PENICILLINS) Allergy (Severe, Verified 06/24/25 10:45) SHORTNESS OF BREATH amoxicillin (AMOXICILLIN) Allergy (Unknown, Verified 06/24/25 10:45) DIFFICULTY BREATHING, shortness of breath Medication List - Last Reconciled 06/24/25 by Milagros Garcia NP acetaminophen 1,000 mg (2 x 500 mg) PO Q6H PRN blood sugar diagnostic (FreeStyle Lite Strips) test blood sugar once a day blood-glucose meter (FreeStyle Lite Meter kit) As directed cyclobenzaprine 10 mg PO BEDTIME ibuprofen 800 mg PO Q8H lancets (FreeStyle Lancets) test blood sugar once a day metformin 1,000 mg PO BID 90 days Do you need a note to return to daycare/school/sports/work: Yes HPI HPI Comments History of Present Illness Details 34-year-old female presents to the walk- in clinic with complaints of left leg injury sustained earlier this morning. Patient reports she slipped on ice while taking out the trash and fell at home, landing with her full body weight onto her left ankle and knee. She describes sharp pain starting at the left ankle with radiation up toward the knee. Pain is worsened with walking and weight-bearing. She reports pain with ankle dorsiflexion and plantar flexion. Patient is concerned about a possible tendon tear or fracture involving the ankle or knee. Denies head strike, loss of consciousness, numbness, or tingling. 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 Gait: Antalgic; difficulty bearing weight on left lower extremity. General: patient oriented x3, moves all extremities and other (Walking with a slight limp due to pain.) Extrem Other: Left Ankle: Tenderness to palpation over ankle Pain with active and passive dorsiflexion and plantar flexion Limited range of motion secondary to pain No obvious deformity noted. Left Knee: Reports pain with movement Tenderness present No obvious swelling or deformity. Assessment & Plan Assessment & Plan (1) Left ankle injury: Code(s): S99.912A - Unspecified injury of left ankle, initial encounter Plan: Ordered Xray Ankle/Knee. Recommend RICE therapy (Rest, Ice, Compression, Elevation) Pain management with NSAIDs as needed, if no contraindications Advise limited weight-bearing until imaging results reviewed Educate patient on red flags: worsening pain, swelling, numbness, inability to bear weight. (2) Left knee pain: Code(s): M25.562 - Pain in left knee Plan: Ordered Xray Ankle/Knee. Recommend RICE therapy (Rest, Ice, Compression, Elevation) Pain management with NSAIDs as needed, if no contraindications Advise limited weight-bearing until imaging results reviewed Educate patient on red flags: worsening pain, swelling, numbness, inability to bear weight. Orders: Orders XR ankle LT min 3V Today S99.912A - Unspecified injury of left ankle, initial encounter Medications: New acetaminophen 1,000 mg (2 x 500 mg) PO Q6H PRN 30 caps 0RF pain S99.912A - Unspecified injury of left ankle, initial encounter cyclobenzaprine 10 mg PO BEDTIME 20 tabs 0RF M25.562 - Pain in left knee, S99.912A - Unspecified injury of left ankle, initial encounter ibuprofen 800 mg PO Q8H 30 tabs 0RF M25.562 - Pain in left knee, S99.912A - Unspecified injury of left ankle, initial encounter Coding Level of Care Code Est Pt Level 4 (62586) Diagnoses Left ankle injury S99.912A Left knee pain M25.562 Time Spent (min) 20
== END 2025-06-24 11:18 | disposition home or self-care (01) ==
PROVIDERS: PCP Internal Medicine; Visit Provider Nurse Practitioner Family
DX: S99.912A Unspecified injury of left ankle, initial encounter (principal); M25.562 Pain in left knee

== ENCOUNTER → 2025-06-24 11:19 | Outpatient (BNV) | payer OTHER, SELFPAY | PROVIDERS: PCP Internal Medicine; Visit Provider Radiology Diagnostic Radiology | DX: M17.12 Unilateral primary osteoarthritis, left knee (principal); M25.462 Effusion, left knee; S99.912A Unspecified injury of left ankle, initial encounter; M77.32 Calcaneal spur, left foot | CPT/HCPCS: 73564; 73610 ==